=== PATIENT | male | born 2000 | race Two or more races ===

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

== ENCOUNTER 2022-12-27 09:53 | Emergency (ER) | payer MEDICAID, OTHER ==
[~2022-12-27] VITALS: Ht 172.7 cm; Wt 68.2 kg
[2022-12-27] MEDS ORDERED: ALBU6.7H6 INH (10:05)
[2022-12-27] MEDS ORDERED: BREO1INH PO (10:05)
[2022-12-27 12:42] LABS: BASO # 0.1 10^3/uL (0.0-0.2); BASO % 0.8 % (0.0-1.0); EOS % 0.2 % (0.0-3.0); HEMATOCRIT 44.8 % (42.0-52.0); HEMOGLOBIN 16.3 g/dl (13.5-17.5); LYMPH # 1.4 10^3/uL (1.5-5.0); LYMPH % 15.4 % (24.0-44.0); MEAN CORPUSCULAR HEMOGLOBIN 30.9 pg (27.0-33.0); MEAN CORPUSCULAR HGB CONC 36.4 g/dl (32.0-36.5); MONO # 0.5 10^3/uL (0.0-0.8); MONO % 5.4 % (2.0-8.0); NEUTROPHILS # 7.1 10^3/uL (1.5-8.5); NEUTROPHILS % 77.9 % (36.0-66.0); PLATELET COUNT, AUTOMATED 231 10^3/uL (150-450); RED BLOOD COUNT 5.27 10^6/uL (4.30-6.10); WHITE BLOOD COUNT 9.1 10^3/uL (4.0-10.0)
[2022-12-27 13:06] LABS: ETHYL ALCOHOL (ETHANOL) 0.007 % (0.000-0.010)
[2022-12-27 13:08] LABS: ACETAMINOPHEN LEVEL < 2.0 UG/ML (10.0-20.0); SALICYLATE LEVEL < 3.0 MG/DL (<30)
[2022-12-27 13:13] LABS: ALBUMIN 4.7 G/DL (3.2-5.2); ALKALINE PHOSPHATASE 58 U/L (46-116); ALT/SGPT < 9 U/L (7.0-40); AST/SGOT 9 U/L (<34); BILIRUBIN,DIRECT 0.2 MG/DL (<0.4); BILIRUBIN,TOTAL 0.6 MG/DL (0.3-1.2); BLOOD UREA NITROGEN 11 MG/DL (9-23); CALCIUM LEVEL 9.7 MG/DL (8.5-10.1); CARBON DIOXIDE LEVEL 26 MMOL/L (20-31); CHLORIDE LEVEL 107 MMOL/L (98-107); CREATININE FOR GFR 0.87 MG/DL (0.70-1.30); GLOMERULAR FILTRATION RATE > 60.0 (>60); GLUCOSE, FASTING 82 MG/DL (60-100); SODIUM LEVEL 139 MMOL/L (136-145); THYROID STIMULATING HORMONE 0.812 uIU/ML (0.55-4.78); TOTAL PROTEIN 7.3 G/DL (5.7-8.2)
[2022-12-27] MEDS ORDERED: MIRA3350 PO (13:54)
[2022-12-27] MEDS ORDERED: ONDA4TAB6 PO (13:54)
[2022-12-27 13:56] VITALS: BP 136/75
[2022-12-27 14:25] LABS: AMPHETAMINES LEVEL URINE NEGATIVE (NEGATIVE); BARBITURATES URINE NEGATIVE (NEGATIVE); COCAINE METABOLITE URINE NEGATIVE (NEGATIVE); METHADONE URINE NEGATIVE (NEGATIVE); OPIATES URINE NEGATIVE (NEGATIVE); PHENCYCLIDINE URINE NEGATIVE (NEGATIVE)
[2022-12-27 14:26] LABS: BENZODIAZEPINES URINE NEGATIVE (NEGATIVE)
[2022-12-27 14:28] LABS: CANNABINOIDS URINE POSITIVE (NEGATIVE)
== END 2022-12-27 14:04 | disposition home or self-care (01) ==
LOC: M ED 09:53
DX: K59.00 Constipation, unspecified (principal); F41.9 Anxiety disorder, unspecified; J45.909 Unspecified asthma, uncomplicated; F17.200 Nicotine dependence, unspecified, uncomplicated